=== PATIENT | female | born 1970 ===

== ENCOUNTER 2018-12-17 07:35 | Outpatient (CLI) | payer OTHER | END 2018-12-17 07:39 | disposition home or self-care (01) | LOC: MRI 07:35 | DX: M41.86 Other forms of scoliosis, lumbar region (principal) | CPT/HCPCS: 72148 ==

== ENCOUNTER 2020-10-12 07:17 | Outpatient (CLI) | payer OTHER | END 2020-10-12 07:23 | disposition home or self-care (01) | LOC: MRI 07:17 | PROVIDERS: ATTEND Physical Medicine & Rehabilitation | DX: M54.6 Pain in thoracic spine (principal); M54.2 Cervicalgia | CPT/HCPCS: 72158 ==

== ENCOUNTER 2021-01-14 10:31 | Outpatient (CLI) | payer OTHER | END 2021-01-14 10:41 | disposition home or self-care (01) | LOC: RAD 10:31 | DX: M41.86 Other forms of scoliosis, lumbar region (principal) ==